=== PATIENT | female | born 1970 | race Caucasian/White ===

== ENCOUNTER 2017-08-04 14:21 | Emergency (ER) | payer MEDICARE, OTHER, SELFPAY ==
[2017-08-04 14:34] VITALS: BP 146/89; PULSE 92; RESP 20; TEMP 37.6; O2SAT 97; BMI 30.1
--- NOTE | 2017-08-04 14:43 | XR_ITS ---
XR chest 2V HISTORY: ITS.REASON: cough, congestion, pain with breathing ORDERING PHYSICIAN: Marleny Land PATIENT AGE: 47 years COMPARISON: None available FINDINGS: The cardiomediastinal silhouette and pulmonary vascularity are within normal limits. The lungs are clear without infiltrates, suspicious nodules, or pleural effusions. No acute bony abnormalities. IMPRESSION: Negative chest, no acute finding
--- NOTE | 2017-08-04 14:44 | HMH.EDUTC ---
[facility] [place] Impression: Upper respiratory infection Qualifiers: URI type: unspecified URI Qualified Code(s): J06.9 - Acute upper respiratory infection, unspecified Disposition: Home, Self-Care Condition on Discharge: Good Instructions: Cough, Cough (Alternative Therapy), Sore Throat, Guaifenesin, DI for Nasal Congestion Additional Instructions: * Monitor Temp. Tylenol and/or Ibuprofen as needed. ER if fever is no less than 101 despite alternating Tylenol and Ibuprofen * Encourage fluids, water, Gatorade, powerade, pedialyte if infant/toddler/or child * Warm salt water gargles for throat irritation *Warm fluids *Sore throat lozenges *Sleep elevated *humidifier or vaporizer Lots of rest Increase fluids, water, Gatorade, powerade *Your throat swab was sent to lab for culture. Those results area typically sent to your primary care physician. Be sure to follow up in 2-3 days if no improvement so they can review those results and treat if necessary If you dont have primary care I recommend you get one, but in the mean time you will have to return to a walk in clinic Follow up IMMEDIATELY for new or worsening of symptoms OR no noticeable improvement over the next 48-72 hours. 911 immediately for any life threatening symptoms such as chest pain or difficulty breathing Prescriptions: Albuterol Sulfate [Proair Hfa 90mcg/puff Inh] 2 puffs IH Q4HP PRN #1 inh PRN Reason: Shortness Of Breath Or Wheezing Benzonatate [Tessalon Perle 100mg Cap] 100 mg PO TID PRN #20 cap PRN Reason: Cough Cefdinir [Omnicef 300mg Capsule] 300 mg PO BID #20 cap Fluticasone Propionate [Flonase 50mcg nasal spray 16gm] 2 spr NS DAILY #1 bottle Referrals: Wil Randhawa MD [Consulting Physician] - Time of Disposition: 15:13 Medical Decision Making - Medical Records Medical records reviewed: Yes: I reviewed the patient's medical records. Vital Signs: 08/04/17 14:34 Temperature 99.7 F H Temperature Source Temporal Artery Scan Pulse Rate [Right Brachial] 92 H Respiratory Rate 20 Blood Pressure [Right Arm] 146/89 Blood Pressure Mean [Right Arm] 108 Blood Pressure Source [Right Arm] Automatic Cuff Blood Pressure Position [Right Arm] Sitting 02 Sat by Pulse Oximetry 97 Oxygen Delivery Method Room Air Orders (Tests/Meds): ORDERS Category Date Time Status Chest XR 2 view (NOT portable) [XR chest 2V] Stat Exams 08/04/17 14:43 Ordered - Shantanu Inquiry Pt receiving controlled substance: No Shantanu was queried for this patient: No [facility] [place] - General Stated complaint: weak cough lungs hurt Mode of Arrival: Ambulatory Source of Information: Patient Limitations: No Limitations Description of Symptoms (Recalled from Triage Doc. by RN): C/O COUGH, CONGESTION, WEAKNESS, CHILLS, FEVERS, BODYACHES, PAIN WITH BREATHING HEENT Symptoms (Recalled from RN notes): No Resp Symptoms (Recalled from RN notes): Yes (COUGH, CONGESTION, PAIN WITH BREATHING) Skin Symptoms (Recalled from RN notes): No MS Symptoms (Recalled from RN notes): Yes (BODYACHES) Functional Status (Recalled from RN notes): N/A - History of Present Illness Provider Complaint: Patient states that she has not felt well since [place] State that she has been sick on and off States that she is having cough, chest congestion, body aches fever and her lungs hurt when she coughs State that she just over all doesn't feel well and been laying around - Related Data Previous Rx's Medication Instructions Recorded Albuterol Sulfate [Proair Hfa 2 puffs IH Q4HP PRN #1 inh 08/04/17 90mcg/puff Inh] Benzonatate [Tessalon Perle 100mg 100 mg PO TID PRN #20 cap 08/04/17 Cap] Cefdinir [Omnicef 300mg Capsule] 300 mg PO BID #20 cap 08/04/17 Fluticasone Propionate [Flonase 2 spr NS DAILY #1 bottle 08/04/17 50mcg nasal spray 16gm] Allergies Allergy/AdvReac Type Severity Reaction Status Date / Time No Known Allergies Allergy Verified 08/04/17 14:34 - [employer]er's [employer]
--- NOTE | 2017-08-04 14:48 | ED_ITS ---
[facility] [place] Clinical Impression: Upper respiratory infection Qualifiers: URI type: unspecified URI Qualified Code(s): J06.9 - Acute upper respiratory infection, unspecified Disposition: Home, Self-Care Condition on Discharge: Good Instructions: Cough, Cough (Alternative Therapy), Sore Throat, Guaifenesin, DI for Nasal Congestion Additional Instructions: * Monitor Temp. Tylenol and/or Ibuprofen as needed. ER if fever is no less than 101 despite alternating Tylenol and Ibuprofen * Encourage fluids, water, Gatorade, powerade, pedialyte if /toddler/or child * Warm salt water gargles for throat irritation *Warm fluids *Sore throat lozenges *Sleep elevated *humidifier or vaporizer Lots of rest Increase fluids, water, Gatorade, powerade *Your throat swab was sent to lab for culture. Those results area typically sent to your primary care physician. Be sure to follow up in 2-3 days if no improvement so they can review those results and treat if necessary If you don? t have primary care I recommend you get one, but in the mean time you will have to return to a walk in clinic Follow up IMMEDIATELY for new or worsening of symptoms OR no noticeable improvement over the next 48-72 hours. 911 immediately for any life threatening symptoms such as chest pain or difficulty breathing Prescriptions: Albuterol Sulfate [Proair Hfa 90mcg/puff Inh] 2 puffs IH Q4HP PRN #1 inh PRN Reason: Shortness Of Breath Or Wheezing Benzonatate [Tessalon Perle 100mg Cap] 100 mg PO TID PRN #20 cap PRN Reason: Cough Cefdinir [Omnicef 300mg Capsule] 300 mg PO BID #20 cap Fluticasone Propionate [Flonase 50mcg nasal spray 16gm] 2 spr NS DAILY #1 bottle Referrals: Wil Randhawa MD [Consulting Physician] - Time of Disposition: 15:13 Medical Decision Making - Medical Records Medical records reviewed: Yes: I reviewed the patient's medical records. Vital Signs: 08/04/17 14:34 Temperature 99.7 F H Temperature Source Temporal Artery Scan Pulse Rate [Right Brachial] 92 H Respiratory Rate 20 Blood Pressure [Right Arm] 146/89 Blood Pressure Mean [Right Arm] 108 Blood Pressure Source [Right Arm] Automatic Cuff Blood Pressure Position [Right Arm] Sitting 02 Sat by Pulse Oximetry 97 Oxygen Delivery Method Room Air Orders (Tests/Meds): ORDERS Category Date Time Status Chest XR 2 view (NOT portable) [XR chest 2V] Stat Exams 08/04/17 14:43 Ordered - Shantanu Inquiry Pt receiving controlled substance: No Shantanu was queried for this patient: No [facility] [place] HPI - General Stated complaint: weak cough lungs hurt Mode of Arrival: Ambulatory Source of Information: Patient Limitations: No Limitations Description of Symptoms (Recalled from Triage Doc. by RN): C/O COUGH, CONGESTION , WEAKNESS, CHILLS, FEVERS, BODYACHES, PAIN WITH BREATHING HEENT Symptoms (Recalled from RN notes): No Resp Symptoms (Recalled from RN notes): Yes (COUGH, CONGESTION, PAIN WITH BREATHING) Skin Symptoms (Recalled from RN notes): No MS Symptoms (Recalled from RN notes): Yes (BODYACHES) Functional Status (Recalled from RN notes): N/A - History of Present Illness Provider Complaint: Patient states that she has not felt well since [place] State that she has been sick on and off States that she is having cough, chest congestion, body aches fever and her lungs hurt when she coughs State that she just over all doesn't feel well and been laying around - Related Data Pre
[2017-08-04 15:06] LABS: UTC Influenza A Antigen Negative (Negative); UTC Influenza B Antigen Negative (Negative)
== END 2017-08-04 15:17 | disposition home or self-care (01) ==
PROVIDERS: Emergency Provider Nurse Practitioner
DX: J06.9 Acute upper respiratory infection, unspecified (principal); R07.89 Other chest pain
CPT/HCPCS: 71046; 87804; 99202; 99282